=== PATIENT | male | born 1945 | race Caucasian/White ===

== ENCOUNTER → 2024-01-09 10:05 | Outpatient (REF) | payer OTHER, SELFPAY | LOC: RAD 10:05 | PROVIDERS: ATTENDING PHYSICIAN Surgery Vascular Surgery; FAMILY PHYSICIAN Family Medicine | DX: I65.23 Occlusion and stenosis of bilateral carotid arteries (principal) | CPT/HCPCS: 93880 ==

== ENCOUNTER → 2025-01-27 09:50 | Outpatient (REF) | payer OTHER, SELFPAY | LOC: RAD 09:50 | PROVIDERS: ATTENDING PHYSICIAN Surgery Vascular Surgery; FAMILY PHYSICIAN Family Medicine | DX: I65.29 Occlusion and stenosis of unspecified carotid artery (principal) | CPT/HCPCS: 93880 ==